=== PATIENT | male | born 1980 | race Caucasian/White ===

== ENCOUNTER 2021-02-05 11:42 | Emergency (ER) | payer OTHER ==
--- NOTE | 2021-02-05 12:20 | EDM.PDOC ---
ED HPI GENERAL MEDICAL PROBLEM - General Chief Complaint: Laceration Stated Complaint: LEFT HAND CUT Time Seen by Provider: 02/05/21 11:55 Source of Information: Reports: Patient History Limitations: Reports: No Limitations - History of Present Illness INITIAL COMMENTS - FREE TEXT/NARRATIVE: HISTORY AND PHYSICAL: History of present illness: The patient is a 40-year-old male that presents to the emergency room with a left thumb laceration after chopping wood at his [facility] at around 11:00 today. The patient was seen at a "Band-Aid station" at the [facility] and told to pres ent to the emergency room for sutures. Patient took 400 mg of Motrin at 1130. He did not clean the wound. He has had no previous injury of his left thumb. 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 Patient denies any fever, chills, headache, change in vision, syncope or near syncope. Denies any chest pain, back pain, shortness of breath or cough. Denies any abdominal pain, nausea, vomiting, diarrhea, constipation or dysuria. Has not noted any blood in urine or stool. Patient has been eating and drinking appropriately. In the emergency room the patient is hemodynamically stable with a slightly elevated blood pressure of 136/104 and a heart rate of 65. He is afebrile with a temperature of 98.1. Review of systems: As per history of present illness and below otherwise all systems reviewed and negative. Past medical history: As per history of present illness and as reviewed below otherwise noncontributory. Surgical history: As per history of present illness and as reviewed below otherwise noncontributory. Social history: See social history for further information Family history: As per history of present illness and as reviewed below otherwise non contributory. Physical exam: General: Well developed and well nourished. Alert and orientated x 3. Nontoxic in appearance and in no acute distress. Vital signs are stable and have been reviewed by me. Nursing notes were reviewed. HEENT: Atraumatic, normocephalic, pupils equal and reactive bilaterally, negative for conjunctival pallor or scleral icterus, mucous membranes moist, TMs normal bilaterally, throat clear, neck supple, nontender, trachea midline. No drooling or trismus noted. No meningeal signs. No hot potato voice noted. Lungs: Clear to auscultation bilaterally. No wheezes, rales, or rhonchi. Chest nontender. Normal work of breathing, no accessory muscles used. Heart: S1S2, regular rate and rhythm without overt murmur, gallops, or rubs. No JVD. No peripheral edema Abdomen: Soft, nondistended, nontender. Normoactive bowel sounds. Negative for masses or costovertebral tenderness. Skin: Left thumb laceration from 1/3 medical thumb nail to medial nail fold. CMS intact. Minimal bleeding. Skin Warm, dry. No lesions or rashes noted. Hematologic: No petechiae or purpra. Mucosa appropriate color and normal nail bed color and refill. Extremities: Moves all extremities per self without difficulty or deficits, negative for cords or calf pain. Neurovascular unremarkable. Neuro: Awake, alert, oriented. Cranial nerves II through XII unremarkable. Cerebellum unremarkable. Motor and sensory unremarkable throughout. Exam nonfocal. Psychiatric: Mood and affect are appropriate. Normal thought process. Answering questions appropriately. Notes: *This patient was seen and evaluated during the 2019 SARS-CoV-2 novel coronavirus pandemic period. Community viral transmission is ongoing at time of this encounter and the emergency department is operating under pandemic response procedures. After discussion and examination the patient is agreeable to a left thumb x-ray and suture repair. Left thumb x-ray: IMPRESSION: No fracture or bone lesion. No radiopaque foreign body. Anatomic alignment. I used a digital block with 1.5 cc lidocaine on either side of the left thumb base. After exploration an additional cleansing I used 3 sutures to approximate the wound. Please see pr ocedure note. The patient tolerated well. The patient was educated on laceration care and signs of infection. Patient to have his sutures removed on his base in 10 days. I will order a thumb splint for protection of the fingernail. The patient is agreeable to the discharge plan. CMS intact post splint application. Patient's blood pressure at discharge was 145/88. I have talked with the patient about today's findings, in addition to providing specific details for plan of care. Reassessment at the time of disposition demonstrates that the patient is in no acute distress. The patient is stable for discharge, counseling was provided and we discussed in great detail signs and symptoms that would prompt them to return to the Emergency Department. Medication, follow up and supportive care measures were reviewed and discussed. Voices understanding and is agreeable to plan of care. Denies any further questions or concerns at this time. Diagnostics:left thumb x-ray Therapeutics:Lidocaine 1%, Left thumb finger splint for patient comfort and to promote healing to wear until suture removal. Impression: Left thumb laceration Plan: 1. You were evaluated today on an emergent basis. Your left thumb laceration was evaluated with an x-ray which was negative for a fracture and repaired with 3 sutures. Keep the sutures clean and dry. Keep the initial dressing on for 24 hours and then you can shower. Do not submerge your sutures in water. Use normal soap and avoid antibacterial soap. You can use bacitracin ointment to the area. Triple antibiotic ointment can cause a rash. Monitor for signs of infection such as increased swelling, increased pain and abnormal drainage. You can have the sutures removed in 10 days. Feel free to have them removed on base. 2. You can alternate Tylenol and ibuprofen as needed for pain and fever management. 3. We encourage you to follow up with your primary care provider and/or recommended specialist in the next few days for re-evaluation and further care/management. 4. If your symptoms should worsen, new symptoms develop or any of the signs and symptoms we discussed should arise please return to the emergency room or call 911 (if needed). Definitive disposition and diagnosis as appropriate pending reevaluation and review of above. L thumb Pain Score (Numeric/FACES): 3 - Related Data Allergies Allergy/AdvReac Type Severity Reaction Status Date / Time No Known Allergies Allergy Verified 02/05/21 12:29 Home Meds: Home Meds . [No Known Home Meds] 02/05/21 [History] ED ROS GENERAL - Review of Systems Review Of Systems: Comprehensive ROS is negative, except as noted in HPI. ED EXAM, SKIN/RASH Exam: See Below (See dictation) ED SKIN PROCEDURES - Laceration/Wound Repair Left Medial Digit - 1st (Thumb) Appearance: Superficial, Linear, Clean Distal NVT: Neuro & Vascular Intact, No Tendon Injury Anesthetic Type: Local Local Anesthesia - Lidocaine (Xylocaine): 1% Plain Local Anesthetic Volume: 3cc Skin Prep: Chlorhexidine (Hibiciens) Saline Irrigation (cc's): 100 Exploration/Debridement/Repair: Wound Explored, No Foreign Material Found Closed with: Sutures Lac/Wound length In cm: 1.3 Suture Size: 3-0 # of Sutures: 3 Suture Type: Prolene Course - Vital Signs Last Recorded V/S: Last Vital Signs Temp 98.1 F 02/05/21 12:25 Pulse 65 02/05/21 12:25 Resp 17 02/05/21 12:25 BP 136/104 H 02/05/21 12:25 Pulse Ox 97 02/05/21 12:25 - Orders/Labs/Meds Orders: Active Orders 24 hr Category Date Time Status DME for Discharge [COMM] Stat Oth 02/05/21 13:08 Ordered Meds: Medications Discontinued Medications Generic Name Dose Route Start Last Admin Trade Name Freq PRN Reason Stop Dose Admin Bacitracin 1 dose 02/05/21 13:08 Bacitracin Oint 1 Gm U/D Packet TOP 02/05/21 13:09 ONETIME ONE Lidocaine HCl 5 ml 02/05/21 12:15 02/05/21 12:30 Lidocaine 1% 5 Ml Sdv INJECT 02/05/21 12:16 5 ml ONETIME ONE Administration Departure - Departure Time of Disposition: 13:07 Disposition: Home, Self-Care 01 Condition: Good Clinical Impression: Laceration - Discharge Information *PRESCRIPTION DRUG MONITORING PROGRAM REVIEWED*: Not Applicable *COPY OF PRESCRIPTION DRUG MONITORING REPORT IN PATIENT ANDREA: Not Applicable Instructions: Laceration Care, Adult Referrals: PCP,None [Primary Care Provider] - Forms: ED Department Discharge Additional Instructions: The following information is given to patients seen in the emergency department who are being discharged to home. This information is to outline your options for follow-up care. We provide all patients seen in our emergency department with a follow-up referral. The need for follow-up, as well as the timing and circumstances, are variable depending upon the specifics of your emergency department visit. If you don't have a primary care physician on staff, we will provide you with a referral. We always advise you to contact your personal physician following an emergency department visit to inform them of the circumstance of the visit and for follow-up with them and/or the need for any referrals to a consulting specialist. The emergency department will also refer you to a specialist when appropriate. This referral assures that you have the opportunity for follow-up care with a specialist. All of these measure are taken in an effort to provide you with optimal care, which includes your follow-up. Under all circumstances we always encourage you to contact your private physician who remains a resource for coordinating your care. When calling for follow-up care, please make the office aware that this follow-up is from your recent emergency room visit. If for any reason you are refused follow-up, please contact the [facility] Emergency Department at and asked to speak to the emergency department charge nurse. [facility] [address] [place] [id number] [facility] [address] [place] [id number] Plan: 1. You were evaluated today on an emergent basis. Your left thumb laceration was evaluated with an x-ray which was negative for a fracture and repaired with 3 sutures. Keep the sutures clean and dry. Keep the initial dressing on for 24 hours and then you can shower. Do not submerge your sutures in water. Use normal soap and avoid antibacterial soap. You can use bacitracin ointment to the area. Triple antibiotic ointment can cause a rash. Monitor for signs of infection such as increased swelling, increased pain and abnormal drainage. You can have the sutures removed in 10 days. Feel free to have them removed [place]. 2. You can alternate Tylenol and ibuprofen as needed for pain and fever management. 3. We encourage you to follow up with your primary care provider and/or recommended specialist in the next few days for re-evaluation and further care/management. 4. If your symptoms should worsen, new symptoms develop or any of the signs and symptoms we discussed should arise please return to the emergency room or call 911 (if needed). Sepsis Event Note (ED) - Focused Exam Vital Signs: Vital Signs Temp Pulse Resp BP Pulse Ox 02/05/21 12:25 98.1 F 65 17 136/104 H 97 - My Orders Last 24 Hours: My Active Orders 02/05/21 13:08 DME for Discharge [COMM] Stat - Assessment/Plan Last 24 Hours: My Active Orders 02/05/21 13:08 DME for Discharge [COMM] Stat
--- NOTE | 2021-02-05 13:03 | CR ---
INDICATION: Left thumb injury. TECHNIQUE: Three views left thumb. IMPRESSION: No fracture or bone lesion. No radiopaque foreign body. Anatomic alignment. Dictated by Tony Chavis MD @ 02/05/2021 1:01:[address] Tony Chavis @ Feb 05 2021 1:01PM
[2021-02-05] MEDS ORDERED: Bacitracin Oint 1 GM U/D Packet TOP ONE (13:08)
== END 2021-02-05 12:35 | disposition home or self-care (01) ==
LOC: MW.ED 11:42
DX: S61.012A Laceration without foreign body of left thumb without damage to nail, initial encounter (principal); W26.8XXA Contact with other sharp object(s), not elsewhere classified, initial encounter
CPT/HCPCS: 12001; 73140-26-FA; 73140-FA; 99282; 99283-25